=== PATIENT | female | born 1990 | race Caucasian/White ===

== ENCOUNTER → 2018-07-05 11:17 | Outpatient (CLI) | payer OTHER, SELFPAY ==
[2018-07-05 12:17] LABS: HCG Quantitative /Beta subunit 393.03 mIU/mL
[2018-07-05 12:48] LABS: Thyroid Stimulating Hormone 0.79 uIU/mL (0.47-4.68)
[2018-07-07 16:10] LABS: Progesterone 43.3 ng/mL
== END ==
PROVIDERS: Family Provider Family Medicine; PCP Family Medicine; Visit Provider Nurse Practitioner Women's Health
DX: Z32.00 Encounter for pregnancy test, result unknown (principal); O09.11 Supervision of pregnancy with history of ectopic pregnancy, first trimester
CPT/HCPCS: 36415; 84144; 84443; 84702

== ENCOUNTER → 2018-07-07 08:11 | Outpatient (CLI) | payer OTHER, SELFPAY ==
[2018-07-07 10:26] LABS: HCG Quantitative /Beta subunit 922.68 mIU/mL
== END ==
PROVIDERS: Family Provider Family Medicine; PCP Family Medicine; Visit Provider Nurse Practitioner Women's Health
DX: Z32.00 Encounter for pregnancy test, result unknown (principal); O09.11 Supervision of pregnancy with history of ectopic pregnancy, first trimester
CPT/HCPCS: 36415; 84702

== ENCOUNTER → 2018-08-16 09:47 | Outpatient (CLI) | payer OTHER, SELFPAY ==
[2018-08-16 10:49] LABS: Appearance Urine UA CLEAR; Bilirubin Urine UA NEGATIVE (NEGATIVE); Color Urine UA YELLOW; Glucose Urine UA NEGATIVE (Negative); Ketones Urine UA NEGATIVE (NEGATIVE); Leukocyte Esterase Urine UA TRACE (NEGATIVE); Nitrite Urine UA NEGATIVE (Negative); Occult Blood Urine UA NEGATIVE (Negative); Protein Urine UA NEGATIVE (Negative); Urobilinogen Urine UA 0.2 E.U./dL (0.2); pH Urine UA 7.5 (4.5-8.0)
[2018-08-16 10:51] LABS: RBC Urine None Seen (0-5/HPF)
[2018-08-16 10:58] LABS: WBC Urine 1-5/HPF (0-5/HPF)
[2018-08-16 10:59] LABS: Bacteria Urine Moderate (10-30); Squamous Epithelial Cell Urine 10-30 /HPF (0-5/HPF)
[2018-08-16 11:37] LABS: Hepatitis B Surface Antigen NEGATIVE s/c (NEGATIVE); Rubella Antibody IgG 52.2 IU/mL (>15)
[2018-08-16 11:49] LABS: HIV 1 and 2 Antibody NEGATIVE (NEGATIVE); Hep C Virus Ab w/Reflex Quant NEGATIVE s/c (NEGATIVE)
[2018-08-16 12:07] LABS: Add Manual Diff / Slide Review NO; Basophils Absolute Auto 0 /uL (0-100); Basophils Percent Auto 0.8 % (0-2); Eosinophils Absolute Auto 200 /uL (0-450); Eosinophils Percent Auto 3.9 % (2-4); Hematocrit 40.5 % (36-46); Lymphocytes Absolute Auto 1300 /uL (1100-4500); Lymphocytes Percent Auto 21.8 % (25-40); Mean Corpuscular HGB Conc 34.5 % (30-36); Mean Corpuscular Hemoglobin 30.5 PG (26-34); Mean Corpuscular Volume 88.2 fL (80-100); Monocytes Absolute Auto 300 /uL (0-900); Monocytes Percent Auto 5.7 % (3-14); Neutrophils Absolute Auto 4100 /uL (1500-7000); Neutrophils Percent Auto 67.8 % (50-75); Platelet Count 203 X10^3/uL (150-400); Red Blood Cell Count 4.59 X10^6/uL (4.0-5.2); Red Cell Distribution Width 12.2 % (11.6-14.8)
[2018-08-18 15:04] LABS: RPR Screen Nonreactive (Nonreactive)
== END ==
PROVIDERS: Family Provider Family Medicine; PCP Family Medicine; Visit Provider Obstetrics & Gynecology
DX: Z34.81 Encounter for supervision of other normal pregnancy, first trimester (principal)
CPT/HCPCS: 36415; 80055; 81003; 81015; 86703; 86787; 86803; 86850; 86900; 86901; 87086

== ENCOUNTER → 2018-09-26 17:48 | Outpatient (CLI) | payer OTHER, SELFPAY ==
[2018-10-02 11:26] LABS: AFP, Serum 21.7 ng/mL; Cigarette Smoker N; Donated Egg NOT GIVEN; Donor Egg Age NOT GIVEN; Estriol, Free 0.55 ng/mL; Inhibin A, Dimeric 123 pg/mL; Maternal Weight 183 lbs; Number of Fetuses NOT GIVEN; Previous Pregnancy Down Syndro NOT GIVEN; hCG, MoM 0.86; hCG, Serum 26.6 IU/mL
== END ==
PROVIDERS: Family Provider Family Medicine; PCP Family Medicine; Visit Provider Obstetrics & Gynecology
DX: Z34.82 Encounter for supervision of other normal pregnancy, second trimester (principal)
CPT/HCPCS: 36415; 82105; 82677; 84702; 86336

== ENCOUNTER → 2018-10-24 09:19 | Outpatient (CLI) | payer OTHER, SELFPAY ==
--- NOTE | 2018-10-24 09:21 | DI.US.S_ITS ---
PROCEDURE: US OB >= 14 WEEKS FETUS INDICATIONS: Anatomy Survey OUTSIDE/PRIOR DATING DATA: Last menstrual period (LMP): 05/30/18. LMP-based estimated date of delivery (MIRACLE): 03/06/19. First dating scan (date and location): 08/08/18. Estimated date of delivery (MIRACLE) from first dating scan: 03/13/19. TECHNIQUE: Real-time scanning was performed of the fetus, with image documentation and biometric measurements. Endovaginal scanning: No COMPARISON: [facility], , OB <= 14 WEEKS FETUS, 08/29/2018, 14:54. FINDINGS: General: A single living intrauterine gestation is present. Presentation: Vertex. Placenta: Placental position is posterior, without previa. Amniotic fluid index: 18.2 cm cm, normal range is 5-24 cm. heart rate: 150 beats per minute. Maternal cervical canal: 4.1 cm long. Normal lower limit is 2.5 cm. biometrics: Biparietal diameter: 20 weeks 2 days Head circumference: 20 weeks 3 days Abdominal circumference: 20 weeks 2 days Femur length: 20 weeks Estimated gestational age from initial scan: 20 weeks Composite gestational age from present scan: 20 weeks 2 days Estimated weight and percentile: 340 g; 59 percentile Measurement variability for biometric dating: +/- 7 days from 14 weeks to 15 weeks 6 days gestation, +/- 10 days from 16 weeks to 21 weeks 6 days gestation, +/- 2 weeks from 22 weeks to 27 weeks 6 days gestation, +/- 3 weeks for 28 weeks gestation or later. weight reference: 4500 g or EFW >90/95% is considered macrosomia or large for gestational age. EFW <10% is small for gestational age. EFW 5% or less is considered intra-uterine growth restriction. Anatomic survey: Neuro: Ventricles are non-dilated at less than 10 mm. Cisterna magna is normal at 3-11 mm. Cerebellum is normal in size and morphology. Nuchal skin fold: Normal at less than 6 mm between 14-21 weeks gestational age. Face: Nose and lips, facial profile are normal. Spine: No evidence for spina bifida. Heart: 4-chambered heart is present, with normal ventricular outflow tracts. Diaphragm: Diaphragm is intact. Stomach: Left-sided stomach is present. Kidneys: No hydronephrosis. Normal is less than 5 mm in 2nd trimester, less than 7 mm in 3rd trimester. Cord: 3-vessel cord has orthotopic insertion. Bladder: Normal in size. Extremities: All 4 extremities identified. IMPRESSION: Single living IUP redemonstrated and interval growth is normal. Normal anatomic survey. Dictated by: Lj MARTINEZ Interpreted: Roxanne Porter MD on 10/24/2018 at 11:52 Approved by: Roxanne Porter M.D. on 10/24/2018 at 14:01
== END ==
PROVIDERS: Family Provider Family Medicine; PCP Family Medicine; Visit Provider Obstetrics & Gynecology
DX: Z34.82 Encounter for supervision of other normal pregnancy, second trimester (principal); Z3A.20 20 weeks gestation of pregnancy
CPT/HCPCS: 76811

== ENCOUNTER → 2018-11-21 15:00 | Outpatient (CLI) | payer OTHER, SELFPAY ==
[2018-11-21 18:21] LABS: GTT (PREG) 1 Hour PP 50gm Dose 94 mg/dL (76-139)
== END ==
PROVIDERS: PCP Family Medicine; Visit Provider Obstetrics & Gynecology
DX: Z34.92 Encounter for supervision of normal pregnancy, unspecified, second trimester (principal); Z3A.24 24 weeks gestation of pregnancy
CPT/HCPCS: 36415; 82950

== ENCOUNTER → 2019-02-13 17:26 | Outpatient (CLI) | payer OTHER, SELFPAY ==
[2019-02-14 12:19] LABS: Strep Grp B PCR NEG for Grp B Strep
== END ==
PROVIDERS: PCP Family Medicine; Visit Provider Obstetrics & Gynecology
DX: Z34.83 Encounter for supervision of other normal pregnancy, third trimester (principal)
CPT/HCPCS: 87653

== ENCOUNTER 2019-02-16 15:57 | Outpatient (CLI) | payer OTHER, SELFPAY ==
--- NOTE | 2019-02-16 17:01 | PM.OBTRLD ---
Visit Information Visit Information Date of evaluation: 02/16/19 Primary OB Provider: Chanel Muse On-call OB Provider: Gisel Rausch Reason for Evaluation: Yes other Comments/Additional reasons for admission: Edema/weight gain, eval for PEC Vital Signs Vital Signs: 121/61, HR 100, T 36.5C PFSH Medical History Infertility (Chronic ~2014) PCOS (polycystic ovarian syndrome) (Chronic) Plantar warts (Resolved) Surgical History Anesthesia (Resolved) Hymen imperforation (Resolved ~2006) S/P wrist surgery (Resolved ~2004) Family History Grandfather No problems noted. Grandmother Mental health problem Grandfather Cancer Diabetes mellitus Melanoma Social History marital status: Smoking Status: Never smoker alcohol intake: current substance use type: does not use Review of Systems Review of Systems Narrative: Patient reported increased hand and foot swelling over days to weeks, denied RIOS, visual changes, RUQ pain, decreased movement, VB, LOF, contractions, or any other complaints. Exam Narrative Exam Narrative: Patient resting in bed, well appearing. Patient and patient's sister report no facial swelling. GI Palpation: soft and No tender Other: BPP 10/10, vertex. MVP 2.79. Objective Labs Result Diagrams: 02/16/19 16:55 02/16/19 16:55 Labs: CMP WNL, Uirne P/C 1.57 Evaluation Evaluation Baseline heart rate: 130 Variability: Marked (>25) monitor accelerations: Present monitor decelerations: Absent Category of Tracing: I Diagnosis, Plan/Disposition Plan/Disposition Plan: This patient is a 28yo @36+3 with a previously uncomplicated , presenting for evaluation due to increased extremity swelling. She reports no other complaints, is normotensive, and despite her high urine protein/creatinine ratio, she has otherwise normal labs. She does not meet diagnostic criteria for preeclampsia with just proteinuria, though this and her hand swelling warrant close monitoring. The patient was counselled repeatedly about both antepartum precautions for return and preeclampsia symptoms, and will complete a 24 hour urine overnight tonight with close follow up Tuesday or Tuesday. The patient vocalized understanding. OB Disposition: home
[2019-02-16 17:09] LABS: Add Manual Diff / Slide Review NO; Basophils Absolute Auto 100 /uL (0-100); Basophils Percent Auto 0.6 % (0-2); Eosinophils Absolute Auto 300 /uL (0-450); Eosinophils Percent Auto 2.7 % (2-4); Lymphocytes Absolute Auto 2100 /uL (1100-4500); Lymphocytes Percent Auto 21.8 % (25-40); Mean Corpuscular HGB Conc 34.2 % (30-36); Mean Corpuscular Hemoglobin 29.8 PG (26-34); Mean Corpuscular Volume 87.2 fL (80-100); Monocytes Absolute Auto 700 /uL (0-900); Monocytes Percent Auto 6.8 % (3-14); Neutrophils Absolute Auto 6500 /uL (1500-7000); Neutrophils Percent Auto 68.1 % (50-75); Platelet Count 173 X10^3/uL (150-400); Red Blood Cell Count 4.01 X10^6/uL (4.0-5.2); Red Cell Distribution Width 13.4 % (11.6-14.8); White Blood Cell Count 9.6 X10^3/uL (4.5-11.0)
[2019-02-16 17:19] LABS: Aspartate Aminotransferase 21 IU/L (14-36); BUN Creatinine Ratio 17.5 (6-22); Blood Urea Nitrogen 7 mg/dL (7-17); Estimated Glomerular Filt Rate > 60.0 mL/min (>60); Uric Acid 4.2 mg/dL (2.5-6.2)
[2019-02-16 17:20] LABS: Creatinine Urine Random 10.8 mg/dL; Protein (Total) Urine Random 17 mg/dL (0-12); Protein Creatinine Ratio Urine 1.57 GRAM/24H
[2019-02-16 17:41] LABS: RBC Urine None Seen (0-5/HPF)
[2019-02-16 17:42] LABS: Appearance Urine UA CLOUDY; Bilirubin Urine UA NEGATIVE (NEGATIVE); Color Urine UA YELLOW; Glucose Urine UA NEGATIVE (Negative); Ketones Urine UA NEGATIVE (NEGATIVE); Leukocyte Esterase Urine UA 2+ (NEGATIVE); Nitrite Urine UA NEGATIVE (Negative); Occult Blood Urine UA NEGATIVE (Negative); Protein Urine UA NEGATIVE (Negative); Specific Gravity Urine UA <=1.005 (1.000-1.035); Urobilinogen Urine UA 0.2 E.U./dL (0.2)
[2019-02-16 17:46] LABS: pH Urine UA 7.5 (4.5-8.0)
[2019-02-16 17:48] LABS: Amorphous Sediment Urine 1+; Bacteria Urine Moderate (10-30); Squamous Epithelial Cell Urine 5-10 /HPF (0-5/HPF); WBC Urine 10-30/HPF (0-5/HPF)
[2019-02-16 17:49] LABS: Culture Indicated Urine Specimen Cultured
[2019-02-17 19:31] LABS: Protein (Total) Urine Random 18 mg/dL (0-12)
[2019-02-17 20:02] LABS: Collection Time Urine 24 Hours
[2019-02-17 20:07] LABS: Total Protein 24 Hour Urine 468 mg/day (42-225); Total Volume Urine 2600 mL
== END 2019-02-16 17:45 | disposition home or self-care (01) ==
LOC: LABOR 17:33 → OB 02-19 10:15
PROVIDERS: Obstetrics & Gynecology; PCP Family Medicine; Visit Provider Obstetrics & Gynecology
DX: O26.893 Other specified pregnancy related conditions, third trimester (principal); Z3A.36 36 weeks gestation of pregnancy; R60.9 Edema, unspecified
CPT/HCPCS: 59025; 76815; 81001; 82570; 84156; 84450; 84550; 85025; 87086; G0378; G0379

== ENCOUNTER 2019-02-18 14:09 | Observation (INO) | payer OTHER, SELFPAY ==
--- NOTE | 2019-02-18 14:38 | DI.US.S_ITS ---
PROCEDURE: US OB BIOPHYSICAL PROFILE INDICATIONS: PROTEIN IN URINE OUTSIDE/PRIOR DATING DATA: Last menstrual period (LMP): 05/30/18. LMP-based estimated date of delivery (MIRACLE): 03/06/19. First dating scan (date and location): 08/08/18. Estimated date of delivery (MIRACLE) from first dating scan: 03/13/19. TECHNIQUE: Real-time scanning was performed of the fetus for biophysical profile, with image documentation. Color and pulse Doppler interrogation was also performed of the umbilical artery near its insertion into the placenta. Endovaginal scanning: Not done COMPARISON: [facility], , OB >= 14 WEEKS FETUS, 01/30/2019, 15:14. [facility], , US OB >= 14 WEEKS FETUS, 10/24/2018, 9:29. [facility], , US OB <= 14 WEEKS FETUS, 08/29/2018, 14:54. [facility], , US OB <= 14 WEEKS FETUS, 08/08/2018, 12:21. FINDINGS: General: A single live intrauterine gestation is present. Presentation: Vertex. Placenta: Placental position is fundal, without previa. Amniotic fluid index: 9.7 cm, normal range is 5-24 cm. heart rate: 158 beats per minute. Maternal cervical canal: Not seen Estimated gestational age from initial scan: 36 weeks 5 days. Biophysical profile: Tone: 2 points. Movement: 2 points. Respiration: 2 points. Largest pocket of fluid: 2 points. Largest pocket equals 3.1 cm IMPRESSION: Normal biophysical profile, 8/8 points. Dictated by: Tyree Rosas M.D. on 02/18/2019 at 15:05 Approved by: Tyree Rosas M.D. on 02/18/2019 at 15:07
[2019-02-18 15:05] LABS: Add Manual Diff / Slide Review NO; Basophils Absolute Auto 0 /uL (0-100); Basophils Percent Auto 0.4 % (0-2); Eosinophils Absolute Auto 200 /uL (0-450); Eosinophils Percent Auto 2.4 % (2-4); Hematocrit 36.4 % (36-46); Hemoglobin 12.4 g/dL (12.0-16.0); Lymphocytes Absolute Auto 1600 /uL (1100-4500); Lymphocytes Percent Auto 18.9 % (25-40); Mean Corpuscular Hemoglobin 30.1 PG (26-34); Mean Corpuscular Volume 88.5 fL (80-100); Monocytes Absolute Auto 500 /uL (0-900); Monocytes Percent Auto 6.3 % (3-14); Neutrophils Absolute Auto 6300 /uL (1500-7000); Platelet Count 185 X10^3/uL (150-400); Red Blood Cell Count 4.11 X10^6/uL (4.0-5.2); Red Cell Distribution Width 13.3 % (11.6-14.8); White Blood Cell Count 8.7 X10^3/uL (4.5-11.0)
[2019-02-18 15:14] LABS: Aspartate Aminotransferase 19 IU/L (14-36); Blood Urea Nitrogen 7 mg/dL (7-17); Estimated Glomerular Filt Rate > 60.0 mL/min (>60); Uric Acid 4.1 mg/dL (2.5-6.2)
[2019-02-18 16:07] LABS: RBC Urine None Seen (0-5/HPF)
[2019-02-18 16:08] LABS: Appearance Urine UA SL CLOUDY; Bilirubin Urine UA NEGATIVE (NEGATIVE); Color Urine UA YELLOW; Glucose Urine UA NEGATIVE (Negative); Ketones Urine UA NEGATIVE (NEGATIVE); Leukocyte Esterase Urine UA 1+ (NEGATIVE); Nitrite Urine UA NEGATIVE (Negative); Occult Blood Urine UA NEGATIVE (Negative); Protein Urine UA NEGATIVE (Negative); Urobilinogen Urine UA 0.2 E.U./dL (0.2)
[2019-02-18 16:14] LABS: pH Urine UA 6.5 (4.5-8.0)
[2019-02-18 16:15] LABS: Amorphous Sediment Urine 1+; Bacteria Urine Moderate (10-30); Mucus Urine 1+ (Negative); Squamous Epithelial Cell Urine 5-10 /HPF (0-5/HPF); WBC Urine 5-10/HPF (0-5/HPF)
--- NOTE | 2019-02-18 16:42 | P.TNLD_ITS ---
Visit Information Visit Information Date of evaluation: 02/18/19 Primary OB Provider: Chanel Muse On-call OB Provider: Gisel Rausch Reason for Evaluation: Yes other Comments/Additional reasons for admission: Evaluation for signs of preeclampsia. Vital Signs Vital Signs: 125/60, pulse 93 [facility] Medical History Infertility (Chronic ~2014) PCOS (polycystic ovarian syndrome) (Chronic) Plantar warts (Resolved) Surgical History Anesthesia (Resolved) Hymen imperforation (Resolved ~2006) S/P wrist surgery (Resolved ~2004) Family History Grandfather No problems noted. Grandmother Mental health problem Grandfather Cancer Diabetes mellitus Melanoma Social History marital status: Smoking Status: Never smoker alcohol intake: current substance use type: does not use Review of Systems Review of Systems Narrative: Patient reports feeling well today, reports URI symptoms improved and swelling decreased from prior evaluation 2 days ago. Patient denies headache, visual changes, right upper quadrant pain, shortness of breath, or any other complaints. Reports good movement, no vaginal bleeding, no loss of fluid, rare symptomatic contractions. Denies UTI symptoms. Cardiovascular Cardiovascular: Reports system reviewed; no additional complaints, except as documented Respiratory Respiratory: Reports system reviewed and no additional complaints, except as documented Gastrointestinal Gastrointestinal: Reports system reviewed and no additional complaints, except as documented Genitourinary Genitourinary: Reports system reviewed and no additional complaints, except as documented Neurologic Neurologic: Reports system reviewed and no additional complaints, except as documented Exam Vital Signs (past 8 hours): Blood pressure 125/60, pulse 93 Const General: cooperative, healthy appearing and comfortable Resp Effort & Inspection: normal respiratory effort Auscultation: clear to auscultation bilaterally Cardio Heart Sounds: S1 normal and S2 normal GI Palpation: soft and No tender Neuro Cranial Nerves: CN's II-XI intact bilaterally Gait: normal gait Extrem Right lower extremity: edema Details: 1+ Left lower extremity: edema Details: 1+ Objective Labs Result Diagrams: 02/18/19 14:56 02/18/19 14:56 Labs: Laboratory Results - last 24 hr 02/18/19 02/18/19 02/18/19 14:56 14:56 16:05 WBC 8.7 RBC 4.11 Hgb 12.4 Hct 36.4 MCV 88.5 MCH 30.1 MCHC 34.0 RDW 13.3 Plt Count 185 Neut % (Auto) 72.0 Lymph % (Auto) 18.9 L [place] % (Auto) 6.3 Eos % (Auto) 2.4 Baso % (Auto) 0.4 Neut # (Auto) 6300 Lymph # (Auto) 1600 [place] # (Auto) 500 Eos # (Auto) 200 Baso # (Auto) 0 BUN 7 Creatinine 0.50 L Estimated GFR > 60.0 BUN/Creatinine Ratio 14.0 Uric Acid 4.1 AST 19 Urine Color Yellow Urine Appearance Sl cloudy Urine pH 6.5 Ur Specific [place] 1.010 Urine Protein Negative Urine Glucose (UA) Negative Urine Ketones Negative Urine Occult Blood Negative Urine Nitrate Negative Urine Bilirubin Negative Urine Urobilinogen 0.2 Ur Leukocyte Esterase 1+ H Urine RBC None seen Urine WBC 5-10/hpf H Ur Squamous Epith Cells 5-10 /hpf H Amorphous Sediment 1+ Urine Bacteria Moderate (10-30) H Urine Mucus 1+ H Ur Culture Indicated? Culture not indicate Evaluation Evaluation Baseline heart rate: 145 Variability: Moderate (11-25) monitor accelerations: Present monitor decelerations: Absent Contraction Frequency (minutes): 5 Category of Tracing: I Laboratory results: Laboratory Tests 02/18/19 02/18/19 02/18/19 14:56 14:56 16:05 WBC 8.7 RBC 4.11 Hgb 12.4 Hct 36.4 MCV 88.5 MCH 30.1 MCHC 34.0 RDW 13.3 Plt Count 185 Neut % (Auto) 72.0 Lymph % (Auto) 18.9 L [place] % (Auto) 6.3 Eos % (Auto) 2.4 Baso % (Auto) 0.4 Neut # (Auto) 6300 Lymph # (Auto) 1600 [place] # (Auto) 500 Eos # (Auto) 200 Baso # (Auto) 0 BUN 7 Creatinine 0.50 L Estimated GFR > 60.0 BUN/Creatinine Ratio 14.0 Uric Acid 4.1 AST 19 Urine Color Yellow Urine Appearance Sl cloudy Urine pH 6.5 Ur Specific [place] 1.010 Urine Protein Negative Urine Glucose (UA) Negative Urine Ketones Negative Urine Occult Blood Negative Urine Nitrate Negative Urine Bilirubin Negative Urine Urobilinogen 0.2 Ur Leukocyte Esterase 1+ H Urine RBC None seen Urine WBC 5-10/hpf H Ur Squamous Epith Cells 5-10 /hpf H Amorphous Sediment 1+ Urine Bacteria Moderate (10-30) H Urine Mucus 1+ H Ur Culture Indicated? Culture not indicate Comments: BPP 8/, see imaging report. Diagnosis, Plan/Disposition Final Diagnosis (1) Proteinuria affecting : Current Visit: No Status: Acute Problem details: This patient is a 28-year-old at 36 weeks 5 days gestation, re- presenting for blood pressure check and evaluation for preeclampsia signs or symptoms. The patient has had an uncomplicated and has a history of a prior uncomplicated vaginal delivery, but reported feeling unwell with increased weight gain and swelling on Tuesday, 02/16, and presented to the Center. At this visit she was found to be normotensive with reassuring status, but had a urine protein creatinine ratio of 1.5. The patient was discharged with a 24 hour urine collection which resulted in 468 mg, and return today for repeat evaluation. The patient reports feeling well today, is normotensive, and has otherwise normal and stable labs. status is reassuring with an 10/10 BPP. The patient has isolated proteinuria, with no signs or symptoms of developing preeclampsia and of unclear etiology. Urine was sent for culture given contamination versus infection, the patient was not treated empirically as is asymptomatic. The patient was counseled about signs and symptoms of preeclampsia along with the usual antepartum precautions, and will follow up at her scheduled visit in [address] Muse. Plan/Disposition Plan: Patient counseled about reasons to return and preeclampsia symptoms. Routine antepartum precautions. OB Disposition: home
== END 2019-02-18 16:40 | disposition home or self-care (01) ==
LOC: LABOR 14:12
PROVIDERS: Admitting Provider Family Medicine; PCP Family Medicine; Visit Provider Obstetrics & Gynecology
DX: O12.23 Gestational edema with proteinuria, third trimester (principal); Z3A.36 36 weeks gestation of pregnancy
CPT/HCPCS: 36415; 59025; 59050; 76819; 81001; 84450; 84550; 85025; 87086; G0378; G0379

== ENCOUNTER 2019-03-13 16:44 | Outpatient (CLI) | payer OTHER, SELFPAY | END 2019-03-13 17:52 | disposition home or self-care (01) | LOC: OB 03-15 11:46 | PROVIDERS: PCP Family Medicine; Visit Provider Obstetrics & Gynecology | DX: O48.0 Post-term pregnancy (principal); Z3A.40 40 weeks gestation of pregnancy | CPT/HCPCS: 59025; G0378; G0379 ==

== ENCOUNTER 2019-03-15 06:55 | Inpatient (IN) | payer OTHER, SELFPAY ==
[2019-03-15 08:08] LABS: Add Manual Diff / Slide Review NO; Basophils Absolute Auto 100 /uL (0-100); Basophils Percent Auto 0.9 % (0-2); Eosinophils Absolute Auto 300 /uL (0-450); Eosinophils Percent Auto 2.6 % (2-4); Hematocrit 35.9 % (36-46); Hemoglobin 12.6 g/dL (12.0-16.0); Lymphocytes Absolute Auto 3000 /uL (1100-4500); Lymphocytes Percent Auto 26.9 % (25-40); Mean Corpuscular HGB Conc 35.1 % (30-36); Mean Corpuscular Hemoglobin 30.3 PG (26-34); Mean Corpuscular Volume 86.3 fL (80-100); Monocytes Absolute Auto 900 /uL (0-900); Monocytes Percent Auto 7.9 % (3-14); Neutrophils Absolute Auto 6800 /uL (1500-7000); Neutrophils Percent Auto 61.7 % (50-75); Platelet Count 184 X10^3/uL (150-400); Red Blood Cell Count 4.16 X10^6/uL (4.0-5.2)
[2019-03-15] MEDS: OXYTOCIN PREMIX 30 UNIT/500 ML PLAST..BAG IV (08:17)
[2019-03-15] MEDS: LACTATED RINGERS 1,000 ML 100 ML IV (08:19)
[2019-03-15] MEDS: ONDANSETRON 4 MG/2 ML INJ IV (13:20)
[2019-03-15] MEDS: ePHEDrine 50 MG/ML VIAL 10 MG IV (18:03)
[2019-03-15 18:26] VITALS: BP 122/77
--- NOTE | 2019-03-15 20:35 | P.PCNOB_ITS ---
Events: Labor Induction Labor & Delivery Delivery date: 03/15/19 Intrapartal events: None Cervical ripening method: none Induction method: per pitocin protocol Delivery augmentation: rupture of membranes Delivery monitor: external FHT and external uterine Route of delivery: vacuum extraction Indication for instrumentation: nonreassuring FHR tracing ( deep variable decelerations) Episiotomy description: None L&D Laceration Description: None Estimated blood loss (mL): 100 Anesthesia type: Epidural Complications: None Narrative: Patient complete and pushed for 30 minutes. A vacuum was applied with the baby in the direct occiput posterior presentation due to deep variable decelerations with pushing. With 1 contraction, 4 pushes, the head turned to the direct occiput anterior presentation and was brought to +3 station. The vacuum was removed. At 8:17 p.m., a live female delivered spontaneously over an intact perineum. No nuchal cord. The remainder of the body delivered without difficulty and the was placed on mom's abdomen. The cord was double clamped and cut after it stopped pulsing. Cord bloods were obtained. Pitocin was given in the IV fluids. The placenta delivered intact with a 3 vessel cord at 2025. Fundus was massaged to firm. A very superficial laceration at the introitus was noted. Pressure was held for hemostasis. Apgars 8 at 1 minute and 9 at 5 minutes. Estimated blood loss 100 cc. . Epidural analgesia. Mom and infant stable to recovery. Plan for aftercare: To routine care
[2019-03-15] MEDS: IBUPROFEN 600 MG TABLET PO (22:58)
[2019-03-16] MEDS: IBUPROFEN 600 MG TABLET PO ×3 (04:56→16:43)
[2019-03-16 07:08] LABS: Hematocrit 32.4 % (36-46); Hemoglobin 11.2 g/dL (12.0-16.0)
[2019-03-16] MEDS: LANOLIN OINT 7 GM 1 APPLIC TOP (08:13)
[2019-03-16] MEDS: PRENATAL VIT,CALC/IRON/FOLIC 1 TABLET 1 TAB PO (08:14)
[2019-03-16] MEDS: ACETAMINOPHEN 325 MG TABLET 650 MG PO ×2 (08:14→13:56)
[2019-03-16] MEDS: DOCUSATE 100 MG CAPSULE PO (08:14)
[2019-03-16] MEDS: OXYCODONE/ACETAMINOPHEN 5/325 TABLET 1 TAB PO (13:02)
[2019-03-16] MEDS: DERMOPLAST SPRAY 20% 60 ML 1 SPRAY TOP (16:43)
[2019-03-17] MEDS: IBUPROFEN 600 MG TABLET PO (07:31)
[2019-03-17] MEDS: PRENATAL VIT,CALC/IRON/FOLIC 1 TABLET 1 TAB PO (09:21)
[2019-03-17] MEDS: DOCUSATE 100 MG CAPSULE PO (09:22)
[2019-03-17 12:29] VITALS: BP 126/71; PULSE 73; RESP 19; TEMP 36.9
--- NOTE | 2019-03-19 08:56 | P.HPOB_ITS ---
OB HPI Date/Time Date of admission: 03/15/19 Date Patient Seen: 03/15/19 Time Patient Seen: 07:30 History of Present Condition Chief complaint: maternity : 2 Para: 1 Estimated Date of Delivery: 03/13/19 Estimated Gestational Age (weeks): 40+ 2 Narrative: Juanita Leonard is a 28 year old female 2 para 1 at 40- ,2/7 weeks gestation who presents for induction of labor Indications Indication for induction OB: post dates History of Present care: good care, initiated at week # (10) and number of visits (13) Dating criteria: LMP confirmed by 1st trimester US Ultrasounds: normal 1st trimester US and normal mid trimester US Obstetrical complications: none Medical complications: none Preadmission Labs Blood type: O (+) positive -: Antibody screen: negative, GBS status: negative, HBsAG: negative, HIV: negative and RPR/VDLR: negative -: Chlamydia screen: not detected and Gonorrhea screen: not detected -: Rubella: immune and Varicella: immune HCT: 40 HCAB: negative PAP: Normal Quad screen: Normal Urine: No growth 1 hr GTT: 94 Prior (ies) History: Evaluation Evaluation Baseline heart rate: 140 Variability: Moderate (11-25) monitor accelerations: Present monitor decelerations: Absent Category of Tracing: I Cervical dilation (cm): 1 Cervical effacement (%): 80 station: -1 Laboratory results: Laboratory Tests 03/15/19 03/15/19 03/16/19 08:00 08:00 06:45 WBC 11.0 RBC 4.16 Hgb 12.6 11.2 L Hct 35.9 L 32.4 L MCV 86.3 MCH 30.3 MCHC 35.1 RDW 14.0 Plt Count 184 Neut % (Auto) 61.7 Lymph % (Auto) 26.9 [place] % (Auto) 7.9 Eos % (Auto) 2.6 Baso % (Auto) 0.9 Neut # (Auto) 6800 Lymph # (Auto) 3000 [place] # (Auto) 900 Eos # (Auto) 300 Baso # (Auto) 100 Blood Type O Positive Antibody Screen Negative PFSH Social History marital status: Smoking Status: Never smoker alcohol intake: current substance use type: does not use Meds Home Medications and Allergies Home Medications Medication Instructions Recorded Confirmed Type omega-3 fatty acids 1,000 mg 1,000 mg PO DAILY 07/21/18 03/15/19 History capsule Double Electric breast Pump and #1 each 03/06/19 03/15/19 Rx Supplies Mynatal 1 cap PO QDAY #90 cap 03/17/19 Rx ibuprofen 600 mg PO Q6H PRN #30 tab 03/17/19 Rx oxycodone-acetaminophen [Percocet] 1 tab PO Q4-6H PRN #20 tab 03/17/19 Rx Allergies Allergy/AdvReac Type Severity Reaction Status Date / Time No Known Drug Allergies Allergy Verified 08/01/18 15:39 Exam Vital Signs (past 8 hours): Generally: A well-developed, well-nourished female, no acute distress Lungs: Clear to auscultation bilaterally Cardiovascular: Regular rate and rhythm Fundal height: 40 cm Estimated weight: 8-1/2 lb Extremities: 1+ edema, negative Homans, 1+ DTRs Objective Labs Result Diagrams: 03/16/19 06:45 Assessment and Plan Assessment and Plan Assessment and Plan narrative: Assessment: 28-year-old 2 para 1 at 40 and 2/7 weeks gestation for induction of labor Plan: Pitocin per protocol 2 Epidural as necessary Expected management to spontaneous vaginal delivery
--- NOTE | 2019-03-19 09:06 | P.PCNOB_ITS ---
Labor & Delivery Delivery date: 03/16/19 Intrapartal events: None Cervical ripening method: none Induction method: per pitocin protocol Delivery augmentation: rupture of membranes Delivery monitor: external FHT and external uterine Route of delivery: vacuum extraction Indication for instrumentation: other (Malpresentation) Episiotomy description: None L&D Laceration Description: None Estimated blood loss (mL): 100 Anesthesia type: Epidural Complications: None Narrative: Patient complete and pushed for 40 minutes. A vacuum was applied due to occiput posterior presentation. With 1 pull the baby rotated to occiput anterior and the vacuum was removed. A spontaneous vaginal delivery at 8:17 p.m. of a live female infant. No nuchal cord. The infant was placed on mom's abdomen. After the cord stopped pulsing, the cord was double clamped and cut. Cord bloods were obtained. Pitocin was given in the IV fluids. The placenta delivered intact with a 3 vessel cord at 8:26 p.m.. Fundus was massaged to firm. There were no lacerations. Estimated blood loss 100 cc. Apgars 8 at 1 minute and 9 at 5 minutes. Weight 8 lb 13.1 oz. . Epidural analgesia. Mom and infant stable to recovery. Plan for aftercare: To routine care
--- NOTE | 2019-03-19 09:12 | PM.OBPN.1 ---
Subjective - OB Subjective Patient comments: no complaints Chancellor feeding status: exclusively breast feeding Date Patient Seen: 03/16/19 Time Patient Seen: 12:30 Exam Vital Signs (past 8 hours): Generally: Patient is sitting up in bed, holding infant, no acute distress Fundus: Firm at U Extremities: 1+ edema, 1+ DTRs, negative Homans Objective Labs Result Diagrams: 03/16/19 06:45 Assessment & Plan Plan day: 1 plan OB: routine care Time Spent With Patient Time: Total time spent is greater than 50% in coordination of care (as documented) at patient's floor/unit and/or counseling patient: Time with patient: 15-24 minutes
--- NOTE | 2019-03-19 09:13 | P.DS_ITS ---
Discharge Providers Provider Date of admission: 03/15/19 06:55 Discharge Date: 03/17/19 Primary care physician: Melodie Hwang DO Consults: 03/16/19 20:33 Consult to [employer] Routine Comment: Discharge provider: Chanel Muse MD Summary Hospital Course Date Patient Seen: 03/17/19 Time Patient Seen: 11:45 Procedures: Induction of labor with Pitocin Artificial rupture of membrane Epidural analgesia Vacuum assisted vaginal delivery Hospital Course: Patient is a 28-year-old 2 para 2 who presented on March 15, 2019 for scheduled induction of labor for postdates. She was started on Pitocin per protocol 2. Artificial rupture of membranes was performed after an epidural was placed. She had a vacuum assisted vaginal delivery without complication. Vacuum was placed due to occiput posterior presentation. Her course was unremarkable. Peripartum Data Delivery Method: Assisted Delivery (Vacuum) Laceration description: None Episiotomy description: None Procedures: Pitocin induction of labor Artificial rupture of membranes Epidural analgesia Vacuum assisted vaginal delivery complications: none Status at Discharge Cognitive/behavioral status at discharge: oriented Functional status at discharge: independent ambulation Overall status at discharge: patient is progressing back to baseline Time Spent with Patient Time attestation: Total time spent providing and/or coordinating discharge services: Time spent: Less than 30 minutes Objective Labs Result Diagrams: 03/16/19 06:45 Exam Vital Signs (past 8 hours): Generally: Patient is sitting up in bed, holding infant, , no acute distress Fundus: Firm at U -1 Extremities: 1+ edema, 1+ DTRs, negative Homans Discharge Plan Discharge Plan Patient Disposition: Home Discharge comment: Call with fever, chill or bleeding vaginally more than a pad in an hour Discharge orders & Medications Prescriptions: New ibuprofen 600 mg tablet 600 mg PO Q6H PRN (Reason: cramping) Qty: 30 RF: 2 oxycodone-acetaminophen [Percocet] 5-325 mg tablet 1 tab PO Q4-6H PRN (Reason: pain) Qty: 20 RF: 0 Continued (DME) Double Electric breast Pump and Supplies See Rx Instructions .ROUTE .MEDSUPPLY Qty: 1 RF: 0 omega-3 fatty acids [Fish Oil Concentrate] 1,000 mg capsule 1,000 mg PO DAILY RF: 0 Mynatal 65 mg iron- 1 mg capsule 1 cap PO QDAY Qty: 90 RF: 3 Follow up/Referrals: Chanel Muse MD [Physician] - 1 Month (Please follow up with , please cancel May 01 appointment as you will be moving. Call to reschedule a new appointment and/or if you have any questions or concerns.) Diet/Activity/Treatments Diet: Regular Activity: No intercourse Skin/Wound/Dressing Care Report to your healthcare provider any signs of infection, such as:: chills, fever, increased pain and unusual drainage Visit Report/Discharge Packet Instructions: DI for Labor and Delivery, Vaginal Stand Alone Forms: Discharge: Care Discharge Data Primary Care Provider: Melodie Hwang Discharges patient from system. Discharge Date/Time: 03/17/19 14:25
== END 2019-03-17 14:25 | disposition home or self-care (01) | DRG 807 ==
PROVIDERS: Admitting Provider Obstetrics & Gynecology; PCP Family Medicine; Visit Provider Obstetrics & Gynecology
DX: O48.0 Post-term pregnancy (principal); Z37.0 Single live birth; Z3A.40 40 weeks gestation of pregnancy; O32.8XX0 Maternal care for other malpresentation of fetus, not applicable or unspecified
CPT/HCPCS: 01967; 36415; 59050; 59400; 85014; 85018; 85025; 86850; 86900; 86901; G0379; J2405; J2590